=== PATIENT | male | born 1970 | race Caucasian/White ===

== ENCOUNTER 2023-07-12 00:54 | Emergency (ER) | payer SELFPAY ==
[~2023-07-12] VITALS: Ht 165.1 cm; Wt 104.3 kg
[2023-07-12 01:00] VITALS: BP 132/100; PULSE 128; RESP 18; TEMP 98.4; O2SAT 98
[2023-07-12 01:15] VITALS: BP 132/100; PULSE 128; RESP 18; TEMP 98.4; O2SAT 98
== END 2023-07-12 01:15 ==
LOC: MED 00:54
DX: Z02.89 Encounter for other administrative examinations (principal)
CPT/HCPCS: 99283